=== PATIENT | female | born 1990 | race Caucasian/White ===

== ENCOUNTER 2016-12-20 16:26 | Inpatient (IN) ==
[2016-12-20] MEDS ORDERED: DINOPROSTONE VAG GEL 10 MG SYRINGE VAG ONE ×2 (16:39→16:48)
[2016-12-20] MEDS ORDERED: BUTORPHANOL 1 MG/ML VIAL IV PRN (16:46)
[2016-12-20] MEDS ORDERED: ONDANSETRON 4 MG/2 ML VIAL IV PRN (16:46)
[2016-12-20 17:06] LABS: Basophils % 0.3 % (0.0-0.8); Eosinophils % 0.1 % (0.00-10.9); Hematocrit 33.3 VOL% (35.7-47.0); Immature Granulocytes % 0.4 %; Immature Granulocytes Absolute 0.05 #; Lymphocytes # 1.8 10*3/uL (1.4-4.0); Lymphocytes % 15.8 % (21.3-54.2); Mean Corpuscular Hemoglobin 27 PG (27-34); Mean Corpuscular Volume 82.2 FL (87-102); Mean Platelet Volume 11.5 FL (9.6-12.0); Monocytes # 0.7 10*3/uL (0.11-0.8); Monocytes % 6.4 % (1.7-12.7); Neutrophils # 8.7 10*3/uL (1.4-7.4); Platelet Count 332 T/CUMM (130-400); Red Blood Count 4.05 MC/CUMM (3.8-5.5); Red Cell Distribution Width 14.7 % (9.3-17.3); White Blood Count 11.3 T/CUMM (4-12)
[2016-12-20 17:28] LABS: Alanine Aminotransferase 13 U/L (13-56); Albumin 2.3 G/DL (3.4-5.0); Alkaline Phosphatase 88 U/L (45-117); Aspartate Amino Transferase 20 U/L (0-37); Bilirubin,Total < 0.39 MG/DL (0.2-1.0); Blood Urea Nitrogen 8 MG/DL (7-18); Calcium 8.2 MG/DL (8.5-10.1); Glucose 118 MG/DL (74-106); Osmolality,Calculated 273.7 MOS/KG (273-304); Potassium 3.9 MMOL/L (3.5-5.1); Sodium 138 MMOL/L (136-145); Total Protein 6.6 G/DL (6.4-8.3)
[2016-12-20] MEDS: LACTATED RINGERS 1,000 ML IV SCH ×2 (17:40→22:32)
--- NOTE | 2016-12-20 17:43 | OB/GYN History & Physical ---
History of Present Illness Chief complaint: In for elective induction due to term . History of present illness: Ms. Raines is a 26 year old female primigravida with an LAMIN of 12/27/2016 for an estimated gestational age of 39 weeks. The patient presents to the labor department for elective induction of labor due to term . The risk and benefits of been thoroughly discussed with this patient and significant other and plan of care has been discussed with Dr. Sanders, all parties are in agreement plan. The patient received her care through the [facility] and she received routine care and her course was uneventful. labs: She is O+, rubella is immune, RPR is nonreactive, hepatitis B negative, HIV negative, GBS culture negative. Review of systems is negative with exception of above. Home Medications Medication Instructions Recorded Confirmed Type Pnv No.95/Ferrous Fum/Folic AC 1 each PO DAILY 08/28/16 12/07/16 History [ Tablet] Allergies Allergy/AdvReac Type Severity Reaction Status Date / Time codeine Allergy Unknown/Unable Verified 12/07/16 12:04 to obtain 12 point system: reviewed and no additional remarkable complaints except as stated Medical,Surgical,& Family Hx - Medical History Medical History: noncontributory - Surgical History Surgical History: noncontributory - Family History Family History: Reports;: Family Cancer, Family Hypertension - Social History Smoking Status: Never smoker Marital Status: Lives With:: Spouse Functional capacity: independent ambulation Exam [employer] - Constitutional General appearance: no acute distress - Antepartum / Post Antepartum Exam Cervix - Dilatation: 1 cm Effacement: 50 % Station: -1 Rupture: Intact Presentation: Vertex Heart Rate: 140s Abdomen obstetrics: Present: bowel sounds normal Vagina: Present: normal moisture Uterus exam: Present: enlarged Anus/Rectum: Present: normal perianal skin - Respiratory Respiratory exam: Present: clear to auscultation bilaterally - Cardiovascular Cardiovascular exam: Present: regular rate and rhythm - GI/Abdominal GI/Abdominal exam: Present: normal bowel sounds, soft - Extremities Exam Extremities exam: Present: normal inspection - Neurological Exam Neurological exam: Present: alert, oriented X3 - Psychiatric Psychiatric exam: Present: normal affect, normal mood - Skin Skin exam: Present: normal color, warm Assessment and Plan (1) 39 weeks gestation of Status: Acute Assessment and plan: Admit IV fluids Prostin gel per protocol IV Pitocin per protocol if indicated Artificial rupture membranes when appropriate Internal monitors if indicated Epidural anesthesia if desired Anticipate Current Visit: Yes Results - Labs CBC & BMP: 12/20/16 17:00 12/20/16 16:59 Quality Measures - VTE Contraindication to Pharmacological VTE Prophylaxis: Continuous Epidural Infusion
[2016-12-20] MEDS ORDERED: hydrOXYzine HCL 25 MG/1 ML VIAL IM PRN (22:05)
[2016-12-20] MEDS ORDERED: fentaNYL 2 MCG/ROPIV 0.2% EPID 150 ML EPIDURAL SCH (22:05)
[2016-12-20] MEDS ORDERED: ePHEDrine 50 MG/ML AMP IV PRN (22:05)
[2016-12-20] MEDS ORDERED: CITRIC ACID/SODIUM CITRATE 30 ML UDCUP PO ONE (22:05)
[2016-12-20] MEDS ORDERED: diphenhydrAMINE 50 MG/1 ML VIAL IV PRN ×2 (22:05)
[2016-12-20] MEDS ORDERED: FAMOTIDINE 20 MG/2 ML VIAL IV ONE (22:05)
[2016-12-20] MEDS ORDERED: PROMETHAZINE 25 MG/1 ML VIAL IM ONE (22:05)
[2016-12-21] MEDS: LACTATED RINGERS 1,000 ML IV SCH ×2 (01:03→09:20)
[2016-12-21 01:48] LABS: Apearance,Urine CLEAR (Clear); Bilirubin,Urine Negative (Negative); Blood, Urine Negative (Negative); Glucose,Urine (UA) Negative (Negative); Ketones,Urine 5 mg/dL (Negative); Mucus,Urine Occasional /LPF (Occasional); Nitrite,Urine Negative (Negative); Protein,Urine 100 MG/DL; RBC,Urine <1 /HPF (0-4); Squamous Epithelial Cell,Urine Occasional /HPF (0-10); Urine Color Yellow (Yellow); Urine Specific Gravity 1.012 (1.001-1.035); Urine Urobilinogen < 2.0 EU/DL (0.2-1.0); WBC,Urine 2 /HPF (0-6)
[2016-12-21] MEDS ORDERED: OXYTOCIN/LR 20 UNIT/1,000 ML BAG IV SCH (02:00)
--- NOTE | 2016-12-21 09:15 | Event Note ---
855: AROM WITH CLEAR FLUID NOTED. SHE IS 4 CM/80%/-1 VTX . SHE IS COMFORTABLE WITH HER EPIDURAL.
[2016-12-21 13:55] LABS: Cord Arterial Blood HCO3 25.4 MMOL/L
[2016-12-21 14:08] LABS: Cord Venous Blood HCO3 21.3 MMOL/L; Cord Venous Blood PCO2 44.9 MMHG; Cord Venous Blood PO2 29.8 MMHG
[2016-12-21] MEDS ORDERED: BISACODYL 10 MG SUPP RECTAL PRN (16:34)
[2016-12-21] MEDS ORDERED: DIPH/TET/ACEL PERT BOOSTER VACCINE 0.5 ML VIAL IM ONE (16:34)
[2016-12-21] MEDS ORDERED: ACETAMINOPHEN 325 MG TABLET PO PRN (16:34)
[2016-12-21] MEDS ORDERED: LANOLIN 50% CREAM 0.3 OZ TUBE TOP PRN (16:34)
[2016-12-21] MEDS ORDERED: MEASLES/MUMPS/RUBELLA VACCINE 0.5 ML VIAL SUBCUT ONE (16:34)
[2016-12-21] MEDS ORDERED: BENZOCAINE 20%/MENTHOL 0.5% SPRAY 56 GM CAN TOP PRN (16:34)
[2016-12-21] MEDS ORDERED: HYDROCORTISONE 2.5% RECTAL CREAM 30 GM TUBE TOP PRN (16:34)
[2016-12-21] MEDS ORDERED: OXYTOCIN/LR 20 UNIT/1,000 ML BAG IV ONE (16:34)
[2016-12-21] MEDS ORDERED: WITCH HAZEL PADS 100/JAR TOP PRN (16:34)
[2016-12-21] MEDS ORDERED: oxyCODONE/ACETAMINOPHEN 5-325 MG TABLET PO PRN (16:34)
[2016-12-21] MEDS: IBUPROFEN 800 MG TABLET PO PRN (16:48)
--- NOTE | 2016-12-21 18:05 | Event Note ---
Delivery note Stage I of labor Prostaglandin gel IV Pitocin Artificial rupture membranes IUPC, scalp electrode Epidural anesthetic heart tones category 1 Stage II Vaginal delivery at 1330 9 PM Female 6 pounds Apgars 8 at 1 minute 9 at 5 minutes Cord blood and cord gas 3 cord vessels noted Stage III Vaginal delivery of the placenta without complications Estimated blood loss less than 300 cc No lacerations on the urethra was noted First-degree introital laceration noted which was repaired with #2-0 Vicryl with 3 interrupted sutures. Mother stable nurses present at the delivery
--- NOTE | 2016-12-21 18:53 | Anesthesia Post-Op ---
Anesthesia Post OP - Post Ansesthetic Evaluation Patient seen in post op: Yes Resp: within normal limits CV: within normal limits Mental: within normal limits Temp: within normal limits [id number]: within normal limits Nausea and Vomiting: within normal limits Pain: within normal limits
[2016-12-22] MEDS: oxyCODONE/ACETAMINOPHEN 5-325 MG TABLET PO PRN ×2 (00:01→19:37)
[2016-12-22 05:27] LABS: Basophils % 0.2 % (0.0-0.8); Eosinophils % 0.1 % (0.00-10.9); Hematocrit 29.9 VOL% (35.7-47.0); Hemoglobin 9.7 GM/DL (12.0-16.0); Immature Granulocytes % 0.5 %; Immature Granulocytes Absolute 0.07 #; Lymphocytes # 2.7 10*3/uL (1.4-4.0); Lymphocytes % 20.1 % (21.3-54.2); Mean Corpuscular HGB Conc 32.4 GM/DL (32-36); Mean Corpuscular Hemoglobin 27 PG (27-34); Mean Corpuscular Volume 83.3 FL (87-102); Monocytes # 1.1 10*3/uL (0.11-0.8); Monocytes % 8.3 % (1.7-12.7); Neutrophils # 9.6 10*3/uL (1.4-7.4); Neutrophils % 70.8 % (38.7-73.9); Platelet Count 283 T/CUMM (130-400); Red Blood Count 3.59 MC/CUMM (3.8-5.5); White Blood Count 13.5 T/CUMM (4-12)
[2016-12-22] MEDS: DOCUSATE SODIUM 100 MG CAPSULE PO SCH ×2 (09:08→21:40)
--- NOTE | 2016-12-22 09:30 | OB/GYN Progress Note ---
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 Bonding well with infant Exam INSPECTOR [employer] - Constitutional Vitals: Vital Signs Temp Pulse Resp BP Pulse Ox 12/22/16 07:39 97.1 F L 79 20 145/97 97 12/22/16 06:00 18 12/22/16 05:00 18 12/22/16 03:00 18 12/21/16 20:00 18 12/21/16 19:33 97.8 F 68 18 138/80 12/21/16 19:00 18 12/21/16 18:33 97.9 F 76 20 144/75 98 12/21/16 17:33 97.9 F 72 17 134/66 98 12/21/16 17:00 18 12/21/16 16:33 98.1 F 67 18 151/80 97 General appearance: no acute distress - Antepartum / Post Post Exam Breast: bilateral: normal Abdomen obstetrics: Present: bowel sounds normal Vagina: Present: normal moisture, discharge (Light lochia rubra) Uterus exam: Present: enlarged (Fundus firm midline) - Respiratory Respiratory exam: Present: clear to auscultation bilaterally - Cardiovascular Cardiovascular exam: Present: regular rate and rhythm - GI/Abdominal GI/Abdominal exam: Present: normal bowel sounds, soft - Extremities Exam Extremities exam: Present: normal inspection - Back Exam Back exam: Present: normal inspection - Neurological Exam Neurological exam: Present: alert, oriented X3 - Psychiatric Psychiatric exam: Present: normal affect, normal mood - Skin Skin exam: Present: normal color, warm Results - Labs CBC & BMP: 12/22/16 04:41 12/20/16 16:59
[2016-12-23 07:24] VITALS: BP 141/93
[2016-12-23] MEDS: DOCUSATE SODIUM 100 MG CAPSULE PO SCH (09:16)
--- NOTE | 2016-12-23 09:18 | Discharge Summary ---
Hospital Course - Hospital Course Hospital Course: Status post Patient is ambulating well, voiding well, pain is been well controlled with oral meds. Abdomen soft, uterus is nice and firm. Extremities well with no limits neurologic grossly intact Assessment and plan Continue present management we will discharge today follow-up our office approximately 6 weeks Specialty Discharge - Follow Up or Referrals Follow up with: Jennifer Sanders MD [Primary Care Provider] - Discharge Plan - Discharge Data Condition at Discharge: Stable Discharge Diet: advance to your usual diet Activity: resume usual activities as tolerated Hygiene: may shower Weight Bearing at Discharge: full weight bearing, weight bear as tolerated Driving: no restrictions Contact your physician if you experience:: fever over 101, Bleeding - Discharge Medications New Ibuprofen Tab [Motrin Tab] 800 mg PO Q6H PRN #20 tablet PRN Reason: Pain Moderate (4-7) oxyCODONE/ACETAMINOPHEN 5-325 [Percocet 5-325] 2 tablet PO Q6H PRN #20 tablet PRN Reason: Pain Severe (8-10) No Action Pnv No.95/Ferrous Fum/Folic AC [ Tablet] 1 each PO DAILY - Follow Up or Referral Follow Up: Jennifer Sanders MD [Primary Care Provider] - - Forms/Instructions Instructions: Depression (GEN), Perineal Care (DC), Bleeding (DC), Sitz Bath (DC) Exam - Constitutional Vitals: Period Temp Pulse Resp BP Sys/Britt Pulse Ox Last 24 Hr 97.3 F-98.1 F 63-86 18-20 111-143/72-93 95-99 Discharge Results Procedures and tests throughout hospitalization: Pending Orders 12/20/16 16:46 Urinalysis Routine DS: Provider Date of admission: 12/20/16 16:46 Primary care physician: Jennifer Sanders MD Attending physician on admission: Jennifer Sanders MD Consults: 12/20/16 16:46 Consult to Anesthesiology [CONS] Routine Consulting Provider: Reason for Anesthesiology: Epidural Consult Comment: Epidural for pain managment 12/21/16 16:41 Consult to Dishcloth Folder [CONS] Routine Consult Dishcloth Folder: Breast Feeding Discharging clinician: Jennifer Sanders MD
[2016-12-23] MEDS: IBUPROFEN 800 MG TABLET PO PRN (14:34)
== END 2016-12-23 15:50 | disposition home or self-care (01) | DRG 560 ==
LOC: N.LDOUT 16:26 → N.LD 16:29 → N.OB 12-21 20:30
PROVIDERS: ADMIT Obstetrics & Gynecology; ATTEND Obstetrics & Gynecology

== ENCOUNTER 2020-10-20 00:17 | Inpatient (IN) ==
[2020-10-20] MEDS ORDERED: ONDANSETRON 4 MG/2 ML VIAL IV PRN ×2 (00:33→15:46)
[2020-10-20] MEDS ORDERED: MEPERIDINE 50 MG/1 ML VIAL IV PRN (00:33)
[2020-10-20] MEDS ORDERED: LACTATED RINGERS 500 ML IV PRN (00:33)
[2020-10-20] MEDS ORDERED: BUTORPHANOL 2 MG/ML VIAL IV PRN (00:33)
[2020-10-20 01:10] LABS: Basophils % 0.2 % (0.0-0.8); Eosinophils % 0.1 % (0.00-10.9); Hematocrit 34.3 VOL% (35.7-47.0); Hemoglobin 10.8 GM/DL (12.0-16.0); Immature Granulocytes % 0.5 %; Immature Granulocytes Absolute 0.05 #; Lymphocytes # 2.1 10*3/uL (1.4-4.0); Lymphocytes % 21.3 % (21.3-54.2); Mean Corpuscular HGB Conc 31.5 GM/DL (32-36); Mean Corpuscular Volume 83.9 FL (87-102); Mean Platelet Volume 11.4 FL (9.6-12.0); Monocytes % 7.6 % (1.7-12.7); Neutrophils % 70.3 % (38.7-73.9); Platelet Count 365 T/CUMM (130-400); Red Blood Count 4.09 MC/CUMM (3.8-5.5); Red Cell Distribution Width 14.6 % (9.3-17.3); White Blood Count 9.8 T/CUMM (4-12)
[2020-10-20 01:30] LABS: Alanine Aminotransferase 12 U/L (13-56); Albumin 2.5 G/DL (3.4-5.0); Alkaline Phosphatase 110 U/L (45-117); Aspartate Amino Transferase 15 U/L (0-37); Bilirubin,Total < 0.39 MG/DL (0.2-1.0); Blood Urea Nitrogen 12 MG/DL (7-18); Carbon Dioxide 22 MMOL/L (21-32); Estimated Glom Filtration Rate 147 ML/MIN; Glucose 81 MG/DL (74-106); Osmolality,Calculated 266.2 MOS/KG (273-304); Potassium 3.7 MMOL/L (3.5-5.1); Sodium 134 MMOL/L (136-145); Total Protein 7.1 G/DL (6.4-8.2)
[2020-10-20] MEDS ORDERED: OXYTOCIN/LR 20 UNIT/1,000 ML BAG IV SCH (01:30)
[2020-10-20] MEDS: LACTATED RINGERS 1,000 ML IV SCH ×3 (02:49→11:09)
[2020-10-20] MEDS ORDERED: CITRIC ACID/SODIUM CITRATE 30 ML UDCUP PO ONE (07:29)
[2020-10-20] MEDS ORDERED: FAMOTIDINE 20 MG/2 ML VIAL IV ONE (07:29)
[2020-10-20] MEDS ORDERED: NALOXONE 0.4 MG/ML VIAL IV PRN (07:29)
[2020-10-20] MEDS ORDERED: diphenhydrAMINE 50 MG/1 ML VIAL IV PRN (07:29)
[2020-10-20] MEDS ORDERED: ePHEDrine 50 MG/ML VIAL IV PRN (07:29)
[2020-10-20] MEDS ORDERED: fentaNYL 2 MCG/ROPIV 0.2% EPID 100 ML EPIDURAL SCH (07:30)
[2020-10-20] MEDS ORDERED: ePHEDrine 50 MG/ML VIAL ONE (07:35)
[2020-10-20 09:47] LABS: Bacteria,Urine Many /HPF (Few); Bilirubin,Urine Negative (Negative); Blood, Urine Negative (Negative); Glucose,Urine (UA) Negative (Negative); Ketones,Urine 80 mg/dL (Negative); Mucus,Urine Occasional /LPF (Occasional); Nitrite,Urine Negative (Negative); Protein,Urine Negative; Urine Appearance CLEAR (Clear); Urine Color Yellow (Yellow); Urine Specific Gravity 1.009 (1.001-1.035); Urine Urobilinogen < 2.0 EU/DL (0.2-1.0)
[2020-10-20] MEDS ORDERED: OXYTOCIN/LR 20 UNIT/1,000 ML BAG IV ONE ×2 (12:48→15:46)
[2020-10-20] MEDS ORDERED: TRANEXAMIC ACID 1,000 MG/10 ML VIAL ONE (12:48)
[2020-10-20] MEDS ORDERED: miSOPROStoL 200 MCG TABLET ONE (12:48)
[2020-10-20] MEDS ORDERED: CARBOPROST TROMETHAMINE 250 MCG/ML AMP IM ONE (12:49)
[2020-10-20] MEDS ORDERED: METHYLERGONOVINE 0.2 MG/1 ML AMP ONE (12:49)
[2020-10-20] MEDS ORDERED: SODIUM CHLORIDE 0.9% 0 ML IV ONE (12:50)
[2020-10-20] MEDS ORDERED: OXYTOCIN/LR 30 UNIT/1,000 ML BAG IV ONE (13:49)
[2020-10-20 14:17] LABS: Cord Arterial Blood HCO3 20.8 MMOL/L
[2020-10-20 14:20] LABS: Cord Venous Blood HCO3 22.4 MMOL/L; Cord Venous Blood PCO2 43.6 MMHG; Cord Venous Blood PO2 22.8
[2020-10-20] MEDS ORDERED: LANOLIN 50% CREAM 0.3 OZ TUBE TOP PRN (15:46)
[2020-10-20] MEDS ORDERED: WITCH HAZEL PADS 100/JAR TOP PRN (15:46)
[2020-10-20] MEDS ORDERED: oxyCODONE/ACETAMINOPHEN 5-325 MG TABLET PO PRN (15:46)
[2020-10-20] MEDS ORDERED: BENZOCAINE 20%/MENTHOL 0.5% SPRAY 56 GM CAN TOP PRN (15:46)
[2020-10-20] MEDS ORDERED: HYDROCORTISONE 2.5% RECTAL CREAM 30 GM TUBE TOP PRN (15:46)
[2020-10-20] MEDS ORDERED: MEASLES/MUMPS/RUBELLA VACCINE 0.5 ML VIAL SUBCUT ONE (15:46)
[2020-10-20] MEDS ORDERED: RHO(D) IMMUNE GLOBULIN 300 MCG SYRINGE IM ONE (15:46)
[2020-10-20] MEDS ORDERED: DIPH/TET/ACEL PERT BOOSTER VACCINE 0.5 ML VIAL IM ONE (15:46)
[2020-10-20] MEDS ORDERED: BISACODYL 10 MG SUPP RECTAL PRN (15:46)
[2020-10-20] MEDS ORDERED: ACETAMINOPHEN 325 MG TABLET PO PRN (15:46)
[2020-10-20] MEDS: IBUPROFEN 800 MG TABLET PO PRN ×2 (18:14→23:50)
[2020-10-20] MEDS: DOCUSATE SODIUM 100 MG CAPSULE PO SCH (20:33)
[2020-10-20] MEDS: oxyCODONE/ACETAMINOPHEN 5-325 MG TABLET PO PRN (20:39)
[2020-10-21] MEDS: oxyCODONE/ACETAMINOPHEN 5-325 MG TABLET PO PRN ×3 (02:50→15:17)
[2020-10-21 05:36] LABS: Basophils % 0.2 % (0.0-0.8); Eosinophils % 0.4 % (0.00-10.9); Hematocrit 28.7 VOL% (35.7-47.0); Hemoglobin 9.2 GM/DL (12.0-16.0); Immature Granulocytes % 0.5 %; Immature Granulocytes Absolute 0.05 #; Lymphocytes # 2.1 10*3/uL (1.4-4.0); Lymphocytes % 19.9 % (21.3-54.2); Mean Corpuscular HGB Conc 32.1 GM/DL (32-36); Mean Corpuscular Volume 83.9 FL (87-102); Mean Platelet Volume 11.3 FL (9.6-12.0); Monocytes % 7.9 % (1.7-12.7); Neutrophils % 71.1 % (38.7-73.9); Platelet Count 262 T/CUMM (130-400); Red Blood Count 3.42 MC/CUMM (3.8-5.5); Red Cell Distribution Width 14.8 % (9.3-17.3); White Blood Count 10.5 T/CUMM (4-12)
[2020-10-21] MEDS: DOCUSATE SODIUM 100 MG CAPSULE PO SCH ×2 (08:46→21:03)
[2020-10-21] MEDS: IBUPROFEN 800 MG TABLET PO PRN (08:47)
[2020-10-22] MEDS: oxyCODONE/ACETAMINOPHEN 5-325 MG TABLET PO PRN ×2 (00:30→09:23)
[2020-10-22 08:29] VITALS: BP 114/78
[2020-10-22] MEDS: DOCUSATE SODIUM 100 MG CAPSULE PO SCH (09:06)
== END 2020-10-22 14:28 | disposition home or self-care (01) | DRG 807 ==
LOC: N.LD 00:17 → N.OB 17:10
PROVIDERS: ADMIT Obstetrics & Gynecology; ATTEND Obstetrics & Gynecology